=== PATIENT | male | born 1955 | race Caucasian/White ===

== ENCOUNTER 2025-04-10 06:53 | Emergency (ER) | payer OTHER ==
[~2025-04-10] VITALS: Ht 175.3 cm; Wt 110.2 kg
--- NOTE | 2025-04-10 08:30 | ERN ---
ED Note History of Present Illness Stated Complaint: C/O PAIN WITH SWELLING TO RT FOOT ONSET TUESDAY Chief Complaint: FOOT INJURY/PAIN Time Seen by MD: 07:44 Dictation: 70-year-old male presenting to the emergency department with right foot pain after he twisted his four days ago started hurting. Patient denies any other injuries no ankle or calf pain Allergies: Coded Allergies: No Known Allergies (Unverified Allergy, Unknown, 04/10/25) Home Meds Active Scripts Naproxen (Naproxen) 250 Mg Tablet, 250 MG PO BID for 5 Days, #10 TAB Prov:NAZARIO ARIZMENDI MD 04/10/25 Past Medical History Past Medical History: High Cholesterol, Hypertension Surgical History: Other Surgical History Other: BILATERAL KNEE REPLACEMENT Review of System Dictation Constitutional: Negative for fever,chills, and weight loss Eyes: Negative for injury, pain,redness, and discharge ENT: Negative for injury,pain or swelling Cardiovascular: Negative for chest pain, palpitations, and edema Respiratory: Negative for shortness of breath, cough, and wheezing, Abdomen/GI: Negative for abdominal pain, nausea, vomiting, diarrhea, and constipation Back: Negative for injury and pain : Negative for injury, bleeding and discharge MS/Extremity: Per HPI Skin: Negative for rash, and discoloration Neuro: Negative for headache, weakness, numbness, tingling, and seizure Psych: Negative for suicide ideation, homicidal ideation, and hallucinations Initial Vital Sign VS Vital Signs Date Time Temp Pulse Resp B/P (MAP) Pulse Ox O2 Delivery O2 Flow Rate FiO2 04/10/25 06:56 97.5 68 20 145/75 Room Air 04/10/25 07:06 98 0 21 Physical Exam Dictation General: awake, alert, NAD Head/Face: Normocephalic, atraumatic Eyes: PERRL, EOMI, vision at baseline ENT: oral cavity clear, TMs clear, no signs of infection Neck: Trachea midline, supple, no nuchal rigidity Cardiovascular: RRR, normal S1/S2, No MRGs, no JVD Respiratory: CTAB, no respiratory distress, No rales or wheezes Abdomen: Soft, non-tender, non-distended, normal bowel sounds, no guarding or rebound. Skin: Warm, dry, normal turgor, no rash MS/Extremity: Pulses equal, no cyanosis, neurovascular intact, FROM, tenderness to the anterior portion of the right foot neurovascularly intact distally Neuro: COAx4, GCS 15, strength 5/5, CN 2-12 intact, normal cerebellar exam, normal gait, Psych: Normal behavior, mood, and affect normal ED Course ED Course Orders Procedure Category Date Status Time Foot Comp 3+Vws Rt RAD 04/10/25 Resulted 08:04 Hydrocodone/Apap PHA 04/10/25 Complete Tab ([place] 10) 08:04 *Nursing CPOE 04/10/25 Transmitted Communication: 09:32 Current Medications Medications (Trade) Dose Ordered Sig/Von Route PRN Reason Start Time Stop Time Status Last Admin Dose Admin Acetaminophen/ Hydrocodone Bitart ([place] 10) 1 tab ONCE STAT PO 04/10/25 08:04 04/10/25 08:06 DC 04/10/25 08:24 Vital Signs Date Time Temp Pulse Resp B/P (MAP) Pulse Ox O2 Delivery O2 Flow Rate FiO2 04/10/25 08:20 97.0 58 18 135/81 99 Room Air* 0 21 04/10/25 07:06 97.2 57 18 135/83 98 Room Air* 0 21 04/10/25 06:56 97.5 68 20 145/75 Room Air Medical Decision Making MDM MDM: Differential diagnosis: Rationale: Tests considered and ordered secondary to shared decision making include: Previous outside records reviewed: Old ER visits. Risk of complication and/or morbidity or mortality of patient management: None Medications-Per medication reconciliation Need for hospitalization: Patient does not meet criteria for hospitalization. Need for emergency major/minor surgery: No There are no social concerns with this patient. Prescription drug management Prescriptions will include symptomatic care Patient's prior external medical records from other ER visits were reviewed by me as indicated. Prior testing and results from previous visits were reviewed. Prior tests were taken into account with medical decision making and resource utilization, independent historian/historians were used to obtain complete medical history. I independently interpreted the test that were performed, results were reviewed by me and considered findings on radiology if ordered. Medical management and examination interpretation discussions were had by me with other qualified healthcare professionals as indicated for the patient's care. 70-year-old male with a right foot sprain stable exam x-ray stable prescriptions given, concern for stress fracture placed in short posterior splint referred to primary with orthopedic follow up DX & DISP Disposition: Discharge Departure Impression: Primary Impression: Right foot sprain Condition: Stable Scripts Naproxen (Naproxen) 250 Mg Tablet 250 MG PO BID for 5 Days, #10 TAB Prov: NAZARIO ARIZMENDI MD 04/10/25 Referrals: SELF,REFERRAL (PCP) MAR KULKARNI CHRISTOPHER MD Apr 10, 2025 08:30
--- NOTE | 2025-04-10 09:03 | HMCIMG ---
EXAM: CR right foot, 3 View. CLINICAL HISTORY: injury. COMPARISON: None provided. FINDINGS: BONES: No acute fracture or aggressive appearing osseous lesion. JOINTS: The joint spaces appear within normal limits. No dislocation. SOFT TISSUES: The soft tissues are unremarkable. IMPRESSION: No acute osseous abnormality. /[place]
[2025-04-10] MEDS ORDERED: NAPR-1196 PO (09:49)
[2025-04-10 10:30] VITALS: BP 104/60; PULSE 51; RESP 18; TEMP 96.9; O2SAT 98
== END 2025-04-10 10:35 | disposition home or self-care (01) ==
LOC: EDH 06:53
DX: S93.601A Unspecified sprain of right foot, initial encounter (principal); E78.00 Pure hypercholesterolemia, unspecified; I10 Essential (primary) hypertension; Z96.653 Presence of artificial knee joint, bilateral; X50.1XXA Overexertion from prolonged static or awkward postures, initial encounter; Y93.89 Activity, other specified; Y92.89 Other specified places as the place of occurrence of the external cause; Y99.8 Other external cause status
CPT/HCPCS: 29515; 73630; 99285